=== PATIENT | female | born 1970 | race Caucasian/White ===

== ENCOUNTER → 2016-06-29 | Outpatient (CLI) | payer MEDICAID ==
--- NOTE | 2016-06-29 17:13 | US ---
EXAMINATION TYPE: US pelvic complete DATE OF EXAM: 06/29/2016 4:42 PM COMPARISON: NONE CLINICAL HISTORY: R10.2 PELVIC PAIN. Pt has Essure in place x 5 years/ Pt states unknown LMP due to l ight spotting since procedure TECHNIQUE: Transabdominal (TA) Date of LMP: Unknown EXAM MEASUREMENTS: Uterus: 7.5 x 3.9 x 6.2 cm Endometrial Stripe: 0.5 cm Right Ovary: 2.0 x 1.5 x 1.8 cm Left Ovary: 3.0 x 2.4 x 2.6 cm 1. Uterus: Anteverted Heterogeneous/ Bilateral uterine horns show echogenic, linear structure sugg esting Essure device 2. Endometrium: wnl 3. Right Ovary: wnl 4. Left Ovary: Cyst= 1.6 x 1.8 x 1.8 cm 5. Bilateral Adnexa: wnl 6. Posterior cul-de-sac: wnl IMPRESSION: No adnexal mass or free fluid. Simple small left ovarian cyst. No endometrial thickening.
--- NOTE | 2016-07-03 13:22 | MM ---
Reason for exam: screening (asymptomatic). Last mammogram was performed 3 years and 10 months ago. Physical Findings: A clinical breast exam by your physician is recommended on an annual basis and results should be correlated with mammographic findings. MG 3D Screening Mammo W/Cad Bilateral CC and MLO view(s) were taken. Prior study comparison: August 23, 2012, mammogram, performed at [facility]. August 10, 2012, mammogram, performed at [facility]. There are scattered fibroglandular densities. No significant changes when compared with prior studies. ASSESSMENT: Negative, BI-RAD 1 RECOMMENDATION: Routine screening mammogram of both breasts in 1 year.
== END | disposition home or self-care (01) ==
LOC: RADMAMWWP 15:15
PROVIDERS: ATTEND Obstetrics & Gynecology
DX: Z12.31 Encounter for screening mammogram for malignant neoplasm of breast (principal); N83.202 Unspecified ovarian cyst, left side; R10.2 Pelvic and perineal pain; Z97.5 Presence of (intrauterine) contraceptive device
CPT/HCPCS: 77063; 76856; G0202

== ENCOUNTER → 2019-03-06 | Outpatient (CLI) | payer MEDICAID ==
--- NOTE | 2019-03-07 08:28 | US ---
EXAMINATION TYPE: US thyroid st tissue head/neck DATE OF EXAM: 03/06/2019 COMPARISON: NONE CLINICAL HISTORY: R22.1 Swelling/Mass lump of neck. Palpable lump right posterior neck at hairline. TECHNIQUE/FINDINGS: Targeted grayscale and color ultrasound was performed of the patient's palpable a bnormality. At the palpable abnormality of the right posterior neck there is a hypoechoic 0.5 x 0.7 x 0.7 cm mass that does not appear to be within the skin. This is within the deeper subcutaneous tissu es and is avascular. There is some increased through transmission. This appears as a complicated cyst ic mass. IMPRESSION: Complicated nonspecific cystic mass at the palpable abnormality could relate to a sebaceous cyst. Consideration could be given to short-term follow-up ultrasound to assess for stab ility. This would be amenable to ultrasound-guided biopsy if there is further clinical concern as oth er etiologies are possible.
== END | disposition home or self-care (01) ==
LOC: RADUSWWP 16:50
PROVIDERS: ATTEND Internal Medicine
DX: R22.1 Localized swelling, mass and lump, neck (principal)
CPT/HCPCS: 76536

== ENCOUNTER → 2019-03-28 | Outpatient (CLI) | payer MEDICAID ==
--- NOTE | 2019-03-29 11:15 | MM ---
Reason for exam: screening (asymptomatic). Last mammogram was performed 2 years and 9 months ago. Physical Findings: A clinical breast exam by your physician is recommended on an annual basis and results should be correlated with mammographic findings. MG Screening Mammo w CAD Bilateral CC and MLO view(s) were taken. Prior study comparison: June 29, 2016, bilateral MG 3d screening mammo w/cad. August 23, 2012, mammogram, performed at [facility]. There are scattered fibroglandular densities. There is no discrete abnormality. No significant changes when compared with prior studies. ASSESSMENT: Negative, BI-RAD 1 RECOMMENDATION: Routine screening mammogram of both breasts in 1 year.
== END | disposition home or self-care (01) ==
LOC: RADMAMWWP 11:27
PROVIDERS: ATTEND Internal Medicine
DX: Z12.31 Encounter for screening mammogram for malignant neoplasm of breast (principal)
CPT/HCPCS: 77067

== ENCOUNTER 2020-08-01 07:09 | Emergency (ER) | payer OTHER, BC ==
--- NOTE | 2020-08-01 07:38 | XR ---
EXAMINATION TYPE: XR forearm LT DATE OF EXAM: 08/01/2020 COMPARISON: None HISTORY: Pain TECHNIQUE: Left forearm is examined in 2 projections. FINDINGS: No acute fractures or dislocations are evident. No radiopaque foreign bodies are evident. S oft tissues appear normal. IMPRESSION: 1. No acute osseous abnormality left forearm. 2. No radiopaque foreign bodies.
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
[2020-08-01 08:10] VITALS: BP 119/80; PULSE 79; RESP 16; TEMP 97.8
== END 2020-08-01 08:20 | disposition home or self-care (01) ==
LOC: EC 07:09
DX: S50.12XA Contusion of left forearm, initial encounter (principal); F32.9 Major depressive disorder, single episode, unspecified; V29.9XXA Motorcycle rider (driver) (passenger) injured in unspecified traffic accident, initial encounter; Y92.410 Unspecified street and highway as the place of occurrence of the external cause
CPT/HCPCS: 99284

== ENCOUNTER → 2021-04-25 | Outpatient (CLI) | payer BC ==
--- NOTE | 2021-04-28 14:08 | MM ---
Reason for exam: screening (asymptomatic). Last mammogram was performed 2 years and 1 month ago. History: Patient is postmenopausal. Physical Findings: A clinical breast exam by your physician is recommended on an annual basis and results should be correlated with mammographic findings. MG 3D Screening Mammo W/Cad Bilateral CC and MLO view(s) were taken. Prior study comparison: March 28, 2019, bilateral MG screening mammo w CAD. June 29, 2016, bilateral MG 3d screening mammo w/cad. There are scattered fibroglandular densities. No significant changes when compared with prior studies. ASSESSMENT: Benign, BI-RAD 2 RECOMMENDATION: Routine screening mammogram of both breasts in 1 year.
== END | disposition home or self-care (01) ==
LOC: RADMAMWWP 16:04
PROVIDERS: ATTEND Internal Medicine
DX: Z12.31 Encounter for screening mammogram for malignant neoplasm of breast (principal); Z78.0 Asymptomatic menopausal state
CPT/HCPCS: 77063; 77067

== ENCOUNTER → 2021-05-06 | Outpatient (CLI) | payer BC ==
[2021-05-06 14:58] LABS: Basophils # (A) 0.04 X 10*3/uL (0.00-0.10); Basophils % (A) 0.6 %; Eosinophils # (A) 0.43 X 10*3/uL (0.04-0.35); Eosinophils % (A) 6.9 %; HCT 41.6 % (37.2-46.3); HGB 14.1 g/dL (12.0-15.0); Immature Grans, Automated 0.3 %; Lymphocytes # (A) 2.12 X 10*3/uL (0.90-5.00); Lymphocytes % (A) 33.9 %; MCH 31.3 pg (27.0-32.0); MCHC 33.9 g/dL (32.0-37.0); MCV 92.2 fL (80.0-97.0); Mean Platelet Volume 10.7 fL (9.5-12.2); Monocytes # (A) 0.49 X 10*3/uL (0.20-1.00); Monocytes % (A) 7.8 %; NRBC Per 100 WBC 0 /100 WBCS (0.0-0.0); Neutrophils # (A) 3.16 X 10*3/uL (1.80-7.70); Neutrophils % (A) 50.5 %; Platelet Count 235 X 10*3/uL (140-440); RBC 4.51 X 10*6/uL (4.10-5.20); RDW 13.1 % (11.5-14.5); WBC 6.26 X 10*3/uL (4.50-10.00)
[2021-05-06 19:08] LABS: ALT 27 U/L (8-44); AST 22 U/L (13-35); African American GFR (CKD) 93.8 (60.0-200.0); Albumin 4.5 g/dL (3.8-4.9); Albumin/Globulin Ratio 1.91 (1.60-3.17); Alkaline Phosphatase 58 U/L (41-126); BUN/Creat Ratio 15.37 Ratio (12.00-20.00); Calcium 9.7 mg/dL (8.7-10.3); Carbon Dioxide 26.7 mmol/L (20.0-27.5); Chloride 101 mmol/L (96-109); Chol/HDL Ratio 3.26 Ratio; Globulin 2.3 g/dL (1.6-3.3); Glucose 85 mg/dL (70-110); LDL Cholesterol,Calculated 116.1 mg/dL (0.0-131.0); Non-African American GFR(CKD) 80.9 (60.0-200.0); Potassium 3.6 mmol/L (3.5-5.5); Sodium 140 mmol/L (135-145); Total Protein 6.8 g/dL (6.2-8.2)
== END | disposition home or self-care (01) ==
LOC: LABWHC1 09:00
PROVIDERS: ATTEND Internal Medicine
DX: Z00.01 Encounter for general adult medical examination with abnormal findings (principal); Z13.220 Encounter for screening for lipoid disorders
CPT/HCPCS: 36415; 80053; 80061; 85025

== ENCOUNTER → 2022-07-28 | Outpatient (CLI) | payer BC | END | disposition home or self-care (01) | LOC: LABWHC1 15:33 | PROVIDERS: ATTEND Nurse Practitioner Family | DX: D51.9 Vitamin B12 deficiency anemia, unspecified (principal); R79.83 Abnormal findings of blood amino-acid level | CPT/HCPCS: 36415; 81291; 82747 ==

== ENCOUNTER → 2023-05-25 | Outpatient (CLI) | payer MEDICAID ==
--- NOTE | 2023-05-27 00:48 | MM ---
Reason for Exam: Screening (asymptomatic). Last mammogram was performed 2 year(s) and 1 month(s) ago. Patient History: Menarche at age 14. First Full-Term at age 18. Left ovary removed at age 53. Right ovary removed at age 53. Hysterectomy at age 53. Postmenopausal. Patient has history of breast feeding. Risk Values: Claudia 5 year model risk: 0.7%. NCI Lifetime model risk: 6.4%. Prior Study Comparison: 06/29/2016 Bilateral Screening Mammogram, [facility]. 03/28/2019 Bilateral Screening Mammogram, [facility]. 04/25/2021 Bilateral Screening Mammogram, [facility]. Tissue Density: There are scattered areas of fibroglandular density. Findings: Analyzed By CAD. The pattern is symmetrical. There is an enlarging nodular density within the mid right craniocaudal projection. Additional workup is recommended. No suspicious groups of microcalcifications, spiculated or lobular masses, architectural distortion or other secondary signs of malignancy are mammographically apparent. Overall Assessment: Incomplete: need additional imaging evaluation, BI-RAD 0 Management: Diagnostic Mammogram of the right breast. A negative mammogram report should not preclude additional follow up of suspicious palpable abnormalities. Patient should continue monthly self breast exam. A clinical breast exam by your physician is recommended on an annual basis and results should be correlated with mammographic findings. Electronically signed and approved by: Vadim Cobb D.O. Radiologis
== END | disposition home or self-care (01) ==
LOC: RADMAMWWP 15:45
PROVIDERS: ATTEND Internal Medicine
DX: Z12.31 Encounter for screening mammogram for malignant neoplasm of breast (principal); Z78.0 Asymptomatic menopausal state
CPT/HCPCS: 77063; 77067

== ENCOUNTER → 2023-06-03 | Outpatient (CLI) | payer MEDICAID ==
--- NOTE | 2023-06-04 11:23 | MM ---
Reason for Exam: Additional evaluation requested from abnormal screening. Last screening mammogram was performed less than 1 month ago. Patient History: Menarche at age 14. First Full-Term at age 18. Left ovary removed at age 53. Right ovary removed at age 53. Hysterectomy at age 53. Postmenopausal. Patient has history of breast feeding. Currently using Estrogen and Progesterone, starting at age 51. Sister had ovarian cancer at or over age 50. Risk Values: Claudia 5 year model risk: 0.7%. NCI Lifetime model risk: 6.4%. Prior Study Comparison: 08/23/2012 Screening Mammogram, [facility]. 06/29/2016 Bilateral Screening Mammogram, [facility]. 03/28/2019 Bilateral Screening Mammogram, [facility]. 04/25/2021 Bilateral Screening Mammogram, [facility]. 05/25/2023 Bilateral MG 3D screening mammo w/cad, [facility]. Tissue Density: Right: There are scattered areas of fibroglandular density. Findings: Analyzed By CAD. Nodular density measuring 5 mm right breast 6 cm from the nipple. Ultrasound recommended. Overall Assessment: Incomplete: need additional imaging evaluation, BI-RAD 0 Management: Diagnostic Breast Ultrasound of the right breast. . Results were given to the patient verbally at the time of exam. Patient should continue monthly self-breast exams. A clinical breast exam by your physician is recommended on an annual basis. This exam should not preclude additional follow-up of suspicious palpable abnormalities. Note on Claudia scores and lifetime risk: 1. A Claudia score greater than 3% is considered moderate risk. If this is the case, consider specialist referral to assess eligibility for a risk reducing agent. 2. If overall lifetime risk for the development of breast cancer is 20% or higher, the patient may qualify for future screening with alternating mammogram and breast MRI. Electronically signed and approved by: Dakotah Barry M.D. Radiologis
--- NOTE | 2023-06-04 14:21 | USB ---
Reason for Exam: Additional evaluation requested from abnormal screening. Patient History: Menarche at age 14. First Full-Term at age 18. Left ovary removed at age 53. Right ovary removed at age 53. Hysterectomy at age 53. Postmenopausal. Patient has history of breast feeding. Currently using Estrogen and Progesterone, starting at age 51. Sister had ovarian cancer at or over age 50. Risk Values: Claudia 5 year model risk: 0.7%. NCI Lifetime model risk: 6.4%. Technique: Method: Targeted. Prior Study Comparison: 03/28/2019 Bilateral Screening Mammogram, [facility]. 04/25/2021 Bilateral Screening Mammogram, [facility]. 05/25/2023 Bilateral MG 3D screening mammo w/cad, [facility]. Findings: The lower outer quadrant of the right breast, the lower inner quadrant of the right breast and the retroareolar of the right breast were scanned. Simple cyst right 7:00 position 5 cm from the nipple measuring 4 mm. No solid masses seen.. Overall Assessment: Benign, BI-RAD 2 Management: Screening Mammogram of both breasts in 1 year. A clinical breast exam by your physician is recommended on an annual basis and results should be correlated with mammographic findings. This exam should not preclude additional follow-up of suspicious palpable abnormalities. Results were given to the patient verbally at the time of exam. Electronically signed and approved by: Dakotah Barry M.D. Radiologis
== END | disposition home or self-care (01) ==
LOC: RADMAMWWP 09:29
PROVIDERS: ATTEND Internal Medicine
DX: R92.8 Other abnormal and inconclusive findings on diagnostic imaging of breast (principal); Z78.0 Asymptomatic menopausal state; Z80.3 Family history of malignant neoplasm of breast
CPT/HCPCS: 77061; 77065

== ENCOUNTER → 2023-07-08 | Outpatient (CLI) | payer BC, MEDICAID ==
--- NOTE | 2023-07-08 09:47 | MR ---
EXAMINATION TYPE: MR brain wo/w con DATE OF EXAM: 07/08/2023 9:04 AM CLINICAL INDICATION:Female, 53 years old with history of I20.9 ANGINA PECTORIS, UNSPECIFIED, Paresthe bella of legs/feet, evaluate for MS. COMPARISON: None TECHNIQUE: Multi planar, multi sequence imaging was performed through the brain including: T1, T2, In version recovery, susceptibility weighted imaging and gradient echo imaging and Diffusion weighted im aging. The patient was then given intravenous contrast and multi planar, T1 fat-saturation images wer e obtained. IV Contrast: 8 cc Gadavist FINDINGS: The enriquez-white junctions, ventricular system, basal cisterns appear unremarkable. Diffusion-weighted imaging shows no evidence of restricted diffusion to suggest acute/subacute infarct. Intracranial ar terial flow voids are maintained. Midline structures show no abnormality. Scattered foci of high T2 s ignal intensity are seen within the periventricular white matter some of which are orthogonal to the lateral ventricles.. The susceptibility weighted images do not reveal any evidence for micro-hemorrha ge. After administration of gadolinium, there is abnormal linear enhancement in the right temporal lo be measuring up to 11 mm x 5 mm. The bone marrow signal is within normal limits. Paranasal sinuses and mastoid air cells: No significant paranasal sinus disease. Visualized orbits: Orbital contents are intact. IMPRESSION: 1. Peripherally enhancing lesion within the right temporal lobe suspicious for demyelination in the s etting of multiple sclerosis. Additional scattered periventricular white matter changes some of which are orthogonal to the ventricles which is compatible with multiple sclerosis. 2. No evidence of intracranial mass or acute/subacute infarct.
== END | disposition home or self-care (01) ==
LOC: RADMRIMAIN 08:10
PROVIDERS: ATTEND Psychiatry & Neurology Neurology
DX: G93.89 Other specified disorders of brain (principal); I20.9 Angina pectoris, unspecified; R26.89 Other abnormalities of gait and mobility; R20.2 Paresthesia of skin
CPT/HCPCS: 70553; A9585

== ENCOUNTER → 2023-07-11 | Outpatient (CLI) | payer MEDICAID ==
--- NOTE | 2023-07-11 16:05 | MR ---
EXAMINATION TYPE: MR thoracic spine wo/w con DATE OF EXAM: 07/11/2023 2:36 PM CLINICAL INDICATION:Female, 53 years old with history of R26.89 ABN GAIT AND MOBILITY R20.2 PARESTHES IA, Paresthesia of legs/feet, evaluate for MS. Gadavist 8ml. No priors. COMPARISON: No priors. TECHNIQUE: Multi planar, multi sequence imaging was performed utilizing: T1-weighted, short-tau inver raisa recovery and T2-weighted of the thoracic spine. IV Contrast: 8 cc Gadavist (none if empty) FINDINGS: Alignment: Mild S-shaped scoliosis. Vertebral bodies have preserved heights. Spinal cord: There is abnormal cord signal seen at multiple levels throughout the spine. No abnormal postcontrast enhancement definitively visualized. Examples include at the level of T2-T3 measuring up to 11 mm in caudocranial length, 45 measuring up to 9 mm in length, C6-C7 Discs: Intervertebral disc signal is maintained. No evidence of significant spinal canal or neural fo raminal stenosis. There is no evidence of extradural defects or central spinal canal narrowing at any thoracic vertebral body level. Osseous structures: No abnormal bony edema on inversion recovery sequences. Multilevel osteophyte for mation and facet joint arthropathy. Scattered disc space narrowing. IMPRESSION: 1. Scattered areas of abnormal cord signal. No postcontrast enhancement identified.. Findings could be compatible with diagnosis of multiple sclerosis in appropriate clinical setting. Attention on shor t-term follow-up to ensure stability. 2. Mild multilevel degeneration changes throughout the spine. No evidence for significant spinal can al stenosis.
== END | disposition home or self-care (01) ==
LOC: RADMRIMAIN 13:34
PROVIDERS: ATTEND Psychiatry & Neurology Neurology
DX: M47.814 Spondylosis without myelopathy or radiculopathy, thoracic region (principal); R26.89 Other abnormalities of gait and mobility; R20.2 Paresthesia of skin
CPT/HCPCS: 72157; A9585

== ENCOUNTER → 2024-03-06 | Outpatient (CLI) | payer MEDICAID ==
--- NOTE | 2024-03-07 08:21 | MR ---
EXAMINATION TYPE: MR brain wo/w cspine wo DATE OF EXAM: 03/06/2024 5:54 PM COMPARISON: 07/08/2023, 07/11/2023. CLINICAL INDICATION: Female, 54 years old with history of G35 MULTIPLE SCLEROSIS; PHH, MS 6 month fol low up after diagnosis and treatment with Kesimpta. numbness on left and right side of body. neck and upper back/ shoulders pain. TECHNIQUE: Multi planar, multi sequence imaging was performed through the brain including: T1, T2, Inversion rec overy, Diffusion weighted imaging, and gradient echo imaging. No gadolinium was given. Multi planar, multi sequence imaging was performed utilizing: T1-weighted, T2-weighted, and turbo inv ersion recovery imaging of the cervical spine. IV Contrast: 7 mL Gadobutrol FINDINGS: Enhancement within the right temporal lobe from prior no longer visualized. Scattered areas of high DWI signal with low or ADC signal including 3 areas in the left salmon radiata series 303 im age 176. Focus of contusion to secure 3 image 200 on the right. No significant change from prior. No abnormal postcontrast enhancement within these regions. Scattered white matter changes also present w hich are orthogonal to the ventricles. The susceptibility weighted images do not reveal any evidence for micro-hemorrhage. The bone marrow signal is within normal limits. Paranasal sinuses and mastoid air cells: No significant paranasal sinus disease. Visualized orbits: Orbital contents are intact. Alignment: The cervical vertebral bodies have preserved heights. Alignment is within normal limits gi shirley patient positioning. Bones: Bone signal is within normal limits. No abnormal bone marrow edema on inversion recovery seque nces. Cord: Multiple abnormal cord signal are present at the level of: * C3 posteriorly measuring up to 10 mm posterior left laterally. * C5-C6 measuring up to 10 mm centrally, * C7 measuring up to 10 mm centrally. * T3 measuring up to 15 mm 5 measuring up to 13 mm only seen on sagittal imaging. Which was seen on prior in 2023 Discs: Multilevel disc desiccation is present. C2-C3: No significant disc pathology. The spinal canal is patent. No neural foraminal stenosis. C3-C4: No significant disc pathology. The spinal canal is patent. No neural foraminal stenosis. C4-C5: No significant disc pathology. The spinal canal is patent. No neural foraminal stenosis. C5-C6: A disc osteophyte complex is present with mild spinal canal stenosis. Bilateral facet and unc overtebral joint arthropathy are present with mild bilateral neural foraminal stenosis. C6-C7: No significant disc pathology. The spinal canal is patent. No neural foraminal stenosis. C7-T1: No significant disc pathology. The spinal canal is patent. No neural foraminal stenosis. Other: None. IMPRESSION: 1. Similar Subtle areas of restricted diffusion suggested in the left salmon radiata suggestive of d emyelination setting of multiple sclerosis. Additionally multiple areas within the spinal cord visual ized with abnormal cord signal suggesting demyelination. The upper thoracic spine lesions were seen o n prior on 07/11/2023. 2. No significant spinal cord 3. Mild disc degeneration with associated osteoarthritic changes. 4. No evidence of intracranial mass. [facility], , 03/07/2024 8:19 AM
== END | disposition home or self-care (01) ==
LOC: RADMRIMAIN 16:33
PROVIDERS: ATTEND Psychiatry & Neurology Neurology
DX: G35 Multiple sclerosis (principal); M47.812 Spondylosis without myelopathy or radiculopathy, cervical region; M50.322 Other cervical disc degeneration at C5-C6 level
CPT/HCPCS: 70553; 72141; A9585

== ENCOUNTER → 2024-03-07 | Outpatient (CLI) | payer MEDICAID ==
--- NOTE | 2024-03-07 20:35 | MR ---
EXAMINATION TYPE: MR thoracic spine wo/w con DATE OF EXAM: 03/07/2024 7:07 PM COMPARISON: None. CLINICAL INDICATION: Female, 54 years old with history of G35 Multiple sclerosis, MS 6 month follow u p after diagnosis and treatment with Kesimpta, neck and upper back/ shoulders pain, numbness on left and right side of body. TECHNIQUE: Multiplanar, multiecho imaging on a 3.0 Luisa magnet is performed through the thoracic spi ne. IV Contrast: 7 mL Gadobutrol (None, if empty) FINDINGS: On inversion recovery weighted sequences there are several white matter plaques present within the sp inal cord. The largest is at the T3 level, present previously. Smaller fainter area appears to be in the T2 level. This may be new These appear to be present Tiny area is at the T10 level, not clearly i dentified previously. These are less well visualized on the axial images. Vertebral body alignment is normal. Vertebral body heights are preserved. Some disc space narrowing is present at T5-6. Degenerative disc changes and disc desiccation are present T5-6, T6-7, T7-8. Disc hydration levels ar e preserved. No suspicious enhancement is evident. No spinal canal stenosis is evident. No suspicious enhancement is evident. IMPRESSION: 1. There may be a new white matter plaque in the T2 level. 2. T3 level white matter plaque appears to be present previously. 3. Tiny new white matter plaque may be present at T10 level. [facility], , 03/07/2024 8:33 PM
== END | disposition home or self-care (01) ==
LOC: RADMRIMAIN 17:55
PROVIDERS: ATTEND Psychiatry & Neurology Neurology
DX: G35 Multiple sclerosis (principal)
CPT/HCPCS: 72157; A9585

== ENCOUNTER → 2024-06-14 | Outpatient (CLI) | payer MEDICAID ==
--- NOTE | 2024-06-15 10:45 | MR ---
EXAMINATION TYPE: MR lumbar spine wo con DATE OF EXAM: 06/14/2024 10:17 PM COMPARISON: None. CLINICAL INDICATION: Female, 54 years old with history of M54.9, Low back pain into left thigh and bu rning groin, Hx MS, TECHNIQUE: Multi planar, multi sequence imaging was performed utilizing: T1-weighted, T2-weighted, a nd turbo inversion recovery imaging of the lumbar spine. IV Contrast: mL (None, if empty) FINDINGS: Alignment: The lumbar vertebral bodies have preserved heights with grade 1 anterolisthesis of L4 on L 5. Cord: The conus medullaris and the distal spinal cord appear unremarkable with regards to their signa l intensity and morphology. Bones/Discs: Mild degeneration changes throughout the spine with osteophyte formation and facet joint arthropathy. Modic type II endplate changes at L5-S1. Intervertebral disc signal is maintained. Reac tive adjoining endplate edema at L5-S1. Increased inversion recovery signal within the pedicles of L4 and L5. T12-L1: No evidence of significant spinal canal stenosis or neural foraminal stenosis. L1-L2: No evidence of significant spinal canal stenosis or neural foraminal stenosis. L2-L3: No evidence of significant spinal canal stenosis or neural foraminal stenosis. L3-L4: No evidence of significant spinal canal stenosis or neural foraminal stenosis. L4-L5: Disc uncovering from grade 1 anterolisthesis and facet joint arthropathy without spinal canal stenosis or neural foraminal stenosis. L5-S1: The disc has a rounded posterior morphology without significant spinal canal stenosis. Facet j oint arthropathy with mild bilateral neural foraminal stenosis. No significant spinal canal or neural foraminal stenosis in the remainder of the visualized levels. Other findings: None. IMPRESSION: 1. No definitive evidence of disc herniation or significant spinal canal stenosis. 2. Mild disc degeneration with associated osteoarthritic changes. 3. Grade 1 anterolisthesis of L4 and L5 with stress reactive edema within the pedicles of L4 and L5 bilaterally. [facility], , 06/15/2024 10:37 AM
== END | disposition home or self-care (01) ==
LOC: RADMRIMAIN 21:45
PROVIDERS: ATTEND Psychiatry & Neurology Neurology
DX: M51.360 Other intervertebral disc degeneration, lumbar region with discogenic back pain only (principal); G35 Multiple sclerosis; M47.816 Spondylosis without myelopathy or radiculopathy, lumbar region; M43.16 Spondylolisthesis, lumbar region; R20.2 Paresthesia of skin
CPT/HCPCS: 72148

== ENCOUNTER → 2024-09-15 | Outpatient (CLI) | payer MEDICAID ==
--- NOTE | 2024-09-15 16:31 | XR ---
EXAMINATION TYPE: XR Hip Complete LT DATE OF EXAM: 09/15/2024 3:59 PM COMPARISON: None. CLINICAL INDICATION: Female, 54 years old with history of M47.816 M51.26 M48.36 M16.12 M25.552 M54.6 G35, pain TECHNIQUE: XR Hip Complete LT XX views were obtained. FINDINGS: There is no acute fracture/dislocation evident. The joint space appears within normal limits. The o verlying soft tissue appears unremarkable. IMPRESSION: No acute fracture or dislocation. [facility], , 09/15/2024 4:28 PM
--- NOTE | 2024-09-15 16:32 | XR ---
EXAMINATION TYPE: XR lumbar spine with bend/flex DATE OF EXAM: 09/15/2024 3:59 PM COMPARISON: None. CLINICAL INDICATION: Female, 54 years old with history of M47.816 M51.26 M48.36 M16.12 M25.552 M54.6 G35, TECHNIQUE: Frontal, lateral, and oblique images of the lumbar spine are obtained. Additional flexion and extension views obtained. FINDINGS: There are 5 lumbar type vertebral bodies identified. The lumbar spine shows satisfactory alignment without evidence of acute fracture or dislocation. Vertebral body heights are within normal limits. Severe disc desiccation at L5-S1 with endplate sclerosis and ventral and dorsal spondylosis. The overlying soft tissue appears unremarkable. Mild curvature convex to the right. Alignment is sta ble at flexion, extension and neutral positioning. IMPRESSION: No acute fracture or dislocation is seen in the lumbar spine.ICD 10 NO FRACTURE, INITIAL EVALUATION [facility] Taina De Leon, , 09/15/2024 4:30 PM
== END | disposition home or self-care (01) ==
LOC: RADXRMAIN 15:14
PROVIDERS: ATTEND Physical Medicine & Rehabilitation
DX: M47.816 Spondylosis without myelopathy or radiculopathy, lumbar region (principal); M51.26 Other intervertebral disc displacement, lumbar region; M48.36 Traumatic spondylopathy, lumbar region; M16.12 Unilateral primary osteoarthritis, left hip; G35 Multiple sclerosis; M51.379 Other intervertebral disc degeneration, lumbosacral region without mention of lumbar back pain or lower extremity pain
CPT/HCPCS: 72114; 73502